=== PATIENT | male | born 1970 | race Caucasian/White ===

== ENCOUNTER 2018-07-22 20:07 | Emergency (ER) | payer BC ==
[2018-07-22] MEDS ORDERED: KETOROLAC 60 MG/2 ML VIAL IM STA (21:40)
[2018-07-22] MEDS ORDERED: CYCLOBENZAPRINE 5 MG TAB PO STA (21:40)
--- NOTE | 2018-07-22 21:50 | ED ---
General Adult HPI - General Chief complaint: Back Pain/Injury Stated complaint: Back pain Source: patient, RN notes reviewed, old records reviewed Mode of arrival: ambulatory Limitations: no limitations - History of Present Illness Initial comments: 47-year-old male patient past medical history of chronic back pain, lumbar laminectomy presents to ED with exacerbation of back pain. Patient states that he was playing basketball for approximately 2 weeks ago, denies sustaining any acute injury during basketball, approximately two days later patient began developing exacerbation of his lumbar back pain. Patient denies any significant falls or trauma. Patient states that he has right paralumbar pain that radiates down his posterior right leg. Patient states that this feels the same as prior back pain exacerbations in past. Patient denies any new symptoms he has not experienced previously. Patient denies IV drug use, fevers chills, loss of bowel or bladder control. Patient denies chest pain, shortness of breath, abdominal pain, nausea vomiting diarrhea. Patient states that his primary reason for ER presentation is symptom relief until he can follow up with his primary care physician. Systemic: Pt denies fatigue, myalgia, fever/chills, rash. Pt denies weakness, night sweats, weight loss. Neuro: Pt denies headache, visual disturbances, syncope or pre-syncope. HEENT: Pt denies ocular discharge or irritation, otalgia, rhinorrhea, pharyngitis or notable lymphadenopathy. Cardiopulmonary: Pt denies chest pain, SOB, heart palpitations, dyspnea on exertion. Abdominal/GI: Pt denies abdominal pain, n/v/d. : Pt denies dysuria, burning w/ urination, frequency/urgency. Denies new onset urinary or bowel incontinence. MSK: Pt denies loss of strength or function in extremities. Neuro: Pt denies new onset weakness, paresthesias. - Related Data Previous Rx's Medication Instructions Recorded Cyclobenzaprine [Flexeril] 10 mg PO TID #20 tab 07/22/18 Ketorolac [Toradol] 10 mg PO Q8HR 3 Days #12 tab 07/22/18 Allergies Allergy/AdvReac Type Severity Reaction Status Date / Time No Known Allergies Allergy Verified 07/22/18 20:24 Review of Systems ROS Statement: Those systems with pertinent positive or pertinent negative responses have been documented in the HPI. ROS Other: All systems not noted in ROS Statement are negative. Past Medical History Past Medical History: No Reported History History of Any Multi-Drug Resistant Organisms: None Reported Past Surgical History: Cholecystectomy Additional Past Surgical History / Comment(s): back surgery 2009. Past Psychological History: No Psychological Hx Reported Smoking Status: Current every day smoker Past Alcohol Use History: Occasional Past Drug Use History: None Reported General Exam - General Exam Comments Initial Comments: Constitutional: NAD, AOX3, Pt has pleasant affect. HEENT: NC/AT, trachea midline, neck supple, no lymphadenopathy. Posterior pharynx non erythematous, without exudates. External ears appear normal, without discharge. Mucous membranes moist. Eyes PERRLA, EOM intact. There is no scleral icterus. No pallor noted. Cardiopulmonary: RRR, no murmurs, rubs or gallops, no JVD noted. Lungs CTAB in anterior and posterior villa. No peripheral edema. Abdominal exam: Abdomen soft and non-distended. Abdomen non-tender to palpation in all 4 quadrants. Bowel sounds active in LLQ. No hepatosplenomegaly. No ecchymosis Neuro: CN II-XII grossly intact. No nuchal rigidity. MSK: No midline cervical, thoracic, lumbar tenderness. No para cervical, thoracic, lumbar tenderness. Right straight leg raise positive. The straight leg raise negative. Psoas and quadriceps strength 5 over 5 bilaterally. Patellar and Achilles reflex 2 out of 4 bilaterally. Heel to toe walking intact. Posterior tibialis and radial pulse +2 bilaterally. No posterior calf tenderness bilaterally, homans sign negative bilaterally. Sensation intact in upper and lower extremities. Full active ROM in upper and lower extremities, 5/ 5 stregnth. Limitations: no limitations Course Vital Signs 07/22/18 07/22/18 20:21 22:32 Temperature 98.1 F 98.2 F Pulse Rate 73 62 Respiratory 16 18 Rate Blood Pressure 148/95 130/93 O2 Sat by Pulse 98 98 Oximetry Medical Decision Making - Medical Decision Making 47-year-old male patient past medical history of chronic back pain, lumbar laminectomy presents to ED with exacerbation of back pain. Patient states that he was playing basketball approximately 2 weeks ago, denies sustaining any acute injury during basketball, approximately two days later patient began developing exacerbation of his lumbar back pain. Patient denies any significant falls or trauma. Patient states that he has right paralumbar pain that radiates down his posterior right leg. Patient states that this feels the same as prior back pain exacerbations in past. Patient denies any new symptoms he has not experienced previously. Patient states that his primary reason for ER presentation is symptom relief until he can follow up with his primary care physician. Physical exam displayed positive right straight leg raise. No other pathologic findings identified. No imaging or laboratory investigations were conducted. UA was initially ordered, however patient states that he had just urinated prior to ED presentation and was unable to provide sample. Patient's symptoms were controlled with Toradol and Flexeril. Patient to be discharged with Flexeril and Toradol for symptom relief. Patient to follow up with PCP in 1-2 days. Patient to return to ED if any new signs or symptoms develop. Case discussed with Dr. Arora. Disposition Clinical Impression: Chronic back pain Disposition: HOME SELF-CARE Condition: Good Instructions: Chronic Back Pain (ED) Additional Instructions: Patient to adhere to previously discussed treatment plan and will take medication(s) as directed. Patient to follow up with PCP in 1-2 days. Patient to return to ED if symptoms do not improve. Prescriptions: Cyclobenzaprine [Flexeril] 10 mg PO TID #20 tab Ketorolac [Toradol] 10 mg PO Q8HR 3 Days #12 tab Is patient prescribed a controlled substance at d/c from ED?: No Referrals: Zayda Holland DO [Primary Care Provider] - 1-2 days Time of Disposition: 22:20
[2018-07-22 22:33] VITALS: BP 130/93; PULSE 62; RESP 18; TEMP 98.2
== END 2018-07-22 22:33 | disposition home or self-care (01) ==
LOC: EC 20:07
DX: G89.29 Other chronic pain (principal); M54.5 Low back pain; M79.604 Pain in right leg; F17.200 Nicotine dependence, unspecified, uncomplicated; Z98.890 Other specified postprocedural states; Y93.67 Activity, basketball
CPT/HCPCS: 99283; 96372; J1885

== ENCOUNTER → 2018-09-05 | Outpatient (CLI) | payer BC ==
--- NOTE | 2018-09-05 16:43 | MR ---
EXAMINATION TYPE: MR lumbar spine wo/w con DATE OF EXAM: 09/05/2018 COMPARISON: None available at this location HISTORY: HX of Previous Surgery, Low Back Pain x 2-3 Months, Gadavist 9.5ml CONTRAST: 9.5 mL intravenous Gadavist. TECHNIQUE: Multiplanar, multisequence images of the lumbar spine were acquired. FINDINGS: L5-S1: There is a right paracentral asymmetric disc bulge into the right paracentral and lateral dire ction. Correlate for right S1 radicular symptoms. Laminectomy has been performed. Displacement of the right S1 nerve root is evident within the spinal canal. There may be a larger disc fragment extendin g beyond the S1 endplate best visualized sagittal plane series 301 image 9. No spinal canal stenosis. Right foraminal stenosis appears to be present. L4-L5: There is loss of disc height to this level. Endplate changes compatible with Modic type I dege nerative changes are present. Mild symmetrical disc bulge is present with mild anterior thecal sac co mpression. Facet hypertrophy with ligamentum flavum laxity has left posterior lateral thecal sac comp ression. Neural foramen are patent. L3-L4: Mild disc bulge is present. This extends into the far left and far right lateral direction. Mo derate right and mild left foraminal narrowing is present. L2-L3: No significant disc bulge or disc herniation. No spinal canal stenosis. No foraminal stenosi s. Neural foramen are patent.. L1-L2: No significant disc bulge or disc herniation. No spinal canal stenosis. No foraminal stenosi s. Neural foramen are patent.. T12-L1: No significant disc bulge or disc herniation. No spinal canal stenosis. No foraminal stenos is. Neural foramen are patent.. No abnormal enhancement. Some granulation tissue enhancement is evident through the right L5 laminect cynthia. IMPRESSION: 1. Right paracentral disc herniation displacing the right S1 nerve root posteriorly at the level of t he L5 laminectomy region.
== END | disposition home or self-care (01) ==
LOC: RADMRIMAIN 15:03
PROVIDERS: ATTEND Family Medicine
DX: M51.27 Other intervertebral disc displacement, lumbosacral region (principal); Z98.890 Other specified postprocedural states
CPT/HCPCS: 72158; A9585

== ENCOUNTER 2022-05-30 06:48 | Emergency (ER) | payer BC ==
[2022-05-30 06:56] VITALS: RESP 18; TEMP 98.4
[2022-05-30] MEDS ORDERED: PANTOPRAZOLE 40 MG/10 ML VIAL IVP STA (07:21)
[2022-05-30] MEDS ORDERED: MAG HYDROX/AL HYDROX/SIMETH 30 ML, HYOSCYAMINE ELIXIR 10 ML, LIDOCAINE VISCOUS 2% 10 ML PO STA ×3 (07:22)
[2022-05-30] MEDS ORDERED: ASPIRIN 81 MG PO STA (07:22)
[2022-05-30] MEDS: ONDANSETRON 4 MG/2 ML VIAL IVP STA ×2 (07:41→07:46)
[2022-05-30 07:49] LABS: Basophils % (A) 0 %; Eosinophils # (A) 0.2 k/uL (0-0.7); Eosinophils % (A) 2 %; HCT 42.1 % (39.0-53.0); HGB 14.7 gm/dL (13.0-17.5); Lymphocytes # (A) 1.3 k/uL (1.0-4.8); Lymphocytes % (A) 13 %; MCHC 34.8 g/dL (31.0-37.0); MCV 91.8 fL (80.0-100.0); Mean Platelet Volume 8.4; Monocytes # (A) 0.7 k/uL (0-1.0); Monocytes % (A) 7 %; Neutrophils # (A) 7.7 k/uL (1.3-7.7); Neutrophils % (A) 76 %; Platelet Count 258 k/uL (150-450); RBC 4.59 m/uL (4.30-5.90); RDW 13.1 % (11.5-15.5); WBC 10.1 k/uL (3.8-10.6)
[2022-05-30 07:56] LABS: INR 0.9 (<1.2); Partial Thromboplastin Time 27.8 sec (22.0-30.0)
--- NOTE | 2022-05-30 07:59 | XR ---
EXAMINATION TYPE: XR chest 2V DATE OF EXAM: 05/30/2022 COMPARISON: NONE HISTORY: Chest and abdominal pain. TECHNIQUE: Frontal and lateral views of the chest are obtained. FINDINGS: Mild lateral left basilar linear scarring and/or atelectasis. Right lung is clear. No pleu ral effusion or pneumothorax seen bilaterally. The cardiac silhouette size is within normal limits. The osseous structures are intact. Cholecystectomy clips are present. IMPRESSION: Mild lateral left basilar linear scarring and/or atelectasis.
[2022-05-30 08:01] LABS: ALT 36 U/L (4-49); AST 24 U/L (17-59); African American GFR (CKD) >90 (>60 ml/min/1.73 sqM); Alkaline Phosphatase 80 U/L (38-126); Amylase 47 U/L (30-110); Anion Gap 5 mmol/L; Blood Urea Nitrogen 9 mg/dL (9-20); Calcium 8.7 mg/dL (8.4-10.2); Carbon Dioxide 30 mmol/L (22-30); Chloride 103 mmol/L (98-107); Glucose 108 mg/dL (74-99); Lipase 84 U/L (23-300); Non-African American GFR(CKD) >90 (>60 ml/min/1.73 sqM); Potassium 4.2 mmol/L (3.5-5.1); Sodium 138 mmol/L (137-145); Total Bilirubin 0.7 mg/dL (0.2-1.3)
--- NOTE | 2022-05-30 08:34 | ED ---
General Adult HPI - General Chief complaint: Abdominal Pain Stated complaint: Abd Pain, Chest Pain Time Seen by Provider: 05/30/22 07:22 Source: patient, RN notes reviewed, old records reviewed Mode of arrival: ambulatory Limitations: no limitations - History of Present Illness Initial comments: Patient is a 51-year-old male who presents emergency Department complaining of substernal chest discomfort that radiates from his epigastrium towards the back of his throat. Describes it as a burning, discomfort sensation. Worse when lying down flat. Improved when sitting up. Attempted to take Pepto-Bismol at home with minimal improvement. Symptoms have been ongoing for multiple days. Presents emergency department for further evaluation at this time. Denies any cardiac history in himself. Has no other acute complaints at this time. Denies chest pain or shortness of breath. Denies headaches or lightheadedness. Denies any urinary complaints, fevers, chills. Denies any diarrhea. Presents for further evaluation at this time. - Related Data Previous Rx's Medication Instructions Recorded Cyclobenzaprine [Flexeril] 10 mg PO TID #20 tab 07/22/18 Ketorolac [Toradol] 10 mg PO Q8HR 3 Days #12 tab 07/22/18 Famotidine [Pepcid] 20 mg PO DAILY #14 tablet 05/30/22 Mag Hydrox/Al Hydrox/Simeth 30 ml PO BID PRN #400 ml 05/30/22 [Maalox] Ondansetron Odt [Zofran Odt] 4 mg PO Q8HR PRN 2 Days #6 tab 05/30/22 Allergies Allergy/AdvReac Type Severity Reaction Status Date / Time Penicillins Allergy Unknown Verified 05/30/22 06:56 Childhood Review of Systems ROS Statement: Those systems with pertinent positive or pertinent negative responses have been documented in the HPI. Review of Systems: CONST: Denies fever EYES: Denies blurry vision ENT: Denies nasal congestion C/V: Endorses burning substernal chest pain RESP: Denies shortness of breath GI: Endorses epigastric abdominal discomfort. : Denies dysuria SKIN: Denies rash. MSK: Denies joint pain. NEURO: Denies headache ROS Other: All systems not noted in ROS Statement are negative. Past Medical History Past Medical History: No Reported History History of Any Multi-Drug Resistant Organisms: None Reported Past Surgical History: Cholecystectomy Additional Past Surgical History / Comment(s): back surgery 2009. Past Psychological History: No Psychological Hx Reported Smoking Status: Current every day smoker Past Alcohol Use History: Occasional Past Drug Use History: None Reported General Exam - General Exam Comments Initial Comments: General: Appears in no acute distress. HEAD: Normal with no signs of head trauma. EYES: PERRLA, EOMI, conjunctiva normal, no discharge. ENT: Hearing grossly intact, normal oropharynx. RESPIRATORY: Clear breath sounds bilaterally. No wheezes, rales, or rhonchi. C/V: Regular rate and rhythm. S1 and S2 auscultated, no edema, peripheral pulses 2+ and intact throughout. Chest pain nonreproducible on palpation. ABD: Abdomen soft, nondistended. Minimally tender to palpation epigastric region. No guarding. No peritoneal signs. No rebound tenderness. EXT: Normal range of motion, no obvious deformity SKIN: No rashes or lesions observed on exposed skin. NEURO: Alert and oriented 4. Limitations: no limitations Course Vital Signs 05/30/22 06:54 Temperature 98.4 F Pulse Rate 96 Respiratory 18 Rate Blood Pressure 127/81 O2 Sat by Pulse 97 Oximetry Medical Decision Making - Medical Decision Making This on the patient's presentation and physical exam, I'm concerned for cardiac, etiology for his current symptoms. It is likely related to acid reflux considering his symptoms. I did discuss this. We will treat him with symptomatic medications as well as an aspirin. We will obtain cardiac labs. est x-ray and EKG. He will be connected to continuous cardiac monitoring. He was in agreement this plan. Vital signs are within acceptable limits. EKG shows no signs of acute ischemia. I interpreted the patient's chest x-ray showed no acute cardio pulmonary process. Laboratory studies are remarkable for a undetectable troponin. Remainder the workup is unremarkable. On reevaluation and the patient's sympotoms have resolved. I did discuss with the patient results of his workup. I do believe it is safer to be discharged home. He was in agreement this plan. I will provide the patient with a prescription for Maalox, famotidine, Zofran ODT. I instructed the patient to follow up with their PCP in the next 1-3 days. I explained that the patient should return to the emergency department if they experience any worsening symptoms. Strict return precautions were discussed with the patient. The patient expressed understanding of these instructions. I answered all questions that the patient had. The patient was discharged home in good condition with their prescriptions and follow up information. - Lab Data Result diagrams: 05/30/22 07:36 05/30/22 07:36 Lab Results 05/30/22 05/30/22 05/30/22 Range/Units 07:36 07:36 07:36 WBC 10.1 (3.8-10.6) k/uL RBC 4.59 (4.30-5.90) m/uL Hgb 14.7 (13.0-17.5) gm/dL Hct 42.1 (39.0-53.0) % MCV 91.8 (80.0-100.0) fL MCH 32.0 (25.0-35.0) pg MCHC 34.8 (31.0-37.0) g/dL RDW 13.1 (11.5-15.5) % Plt Count 258 (150-450) k/uL MPV 8.4 Neutrophils % 76 % Lymphocytes % 13 % Monocytes % 7 % Eosinophils % 2 % Basophils % 0 % Neutrophils # 7.7 (1.3-7.7) k/uL Lymphocytes # 1.3 (1.0-4.8) k/uL Monocytes # 0.7 (0-1.0) k/uL Eosinophils # 0.2 (0-0.7) k/uL Basophils # 0.0 (0-0.2) k/uL PT 10.0 (9.0-12.0) sec INR 0.9 (<1.2) APTT 27.8 (22.0-30.0) sec Sodium 138 (137-145) mmol/L Potassium 4.2 (3.5-5.1) mmol/L Chloride 103 (98-107) mmol/L Carbon Dioxide 30 (22-30) mmol/L Anion Gap 5 mmol/L BUN 9 (9-20) mg/dL Creatinine 0.79 (0.66-1.25) mg/dL Est GFR (CKD-EPI)AfAm >90 (>60 ml/min/1.73 sqM) Est GFR (CKD-EPI)NonAf >90 (>60 ml/min/1.73 sqM) Glucose 108 H (74-99) mg/dL Plasma Lactic Acid Zechariah (0.7-2.0) mmol/L Calcium 8.7 (8.4-10.2) mg/dL Total Bilirubin 0.7 (0.2-1.3) mg/dL AST 24 (17-59) U/L ALT 36 (4-49) U/L Alkaline Phosphatase 80 (38-126) U/L Troponin I (0.000-0.034) ng/mL Total Protein 6.0 L (6.3-8.2) g/dL Albumin 4.0 (3.5-5.0) g/dL Amylase 47 (30-110) U/L Lipase 84 (23-300) U/L 05/30/22 05/30/22 Range/Units 07:36 07:36 WBC (3.8-10.6) k/uL RBC (4.30-5.90) m/uL Hgb (13.0-17.5) gm/dL Hct (39.0-53.0) % MCV (80.0-100.0) fL MCH (25.0-35.0) pg MCHC (31.0-37.0) g/dL RDW (11.5-15.5) % Plt Count (150-450) k/uL MPV Neutrophils % % Lymphocytes % % Monocytes % % Eosinophils % % Basophils % % Neutrophils # (1.3-7.7) k/uL Lymphocytes # (1.0-4.8) k/uL Monocytes # (0-1.0) k/uL Eosinophils # (0-0.7) k/uL Basophils # (0-0.2) k/uL PT (9.0-12.0) sec INR (<1.2) APTT (22.0-30.0) sec Sodium (137-145) mmol/L Potassium (3.5-5.1) mmol/L Chloride (98-107) mmol/L Carbon Dioxide (22-30) mmol/L Anion Gap mmol/L BUN (9-20) mg/dL Creatinine (0.66-1.25) mg/dL Est GFR (CKD-EPI)AfAm (>60 ml/min/1.73 sqM) Est GFR (CKD-EPI)NonAf (>60 ml/min/1.73 sqM) Glucose (74-99) mg/dL Plasma Lactic Acid Zechariah 0.8 (0.7-2.0) mmol/L Calcium (8.4-10.2) mg/dL Total Bilirubin (0.2-1.3) mg/dL AST (17-59) U/L ALT (4-49) U/L Alkaline Phosphatase (38-126) U/L Troponin I <0.012 (0.000-0.034) ng/mL Total Protein (6.3-8.2) g/dL Albumin (3.5-5.0) g/dL Amylase (30-110) U/L Lipase (23-300) U/L - EKG Data -: EKG Interpreted by Me EKG Comments: 12-lead Electrocardiogram Interpretation Note EKG was reviewed and interpreted by myself. 12-lead ECG performed at 0727 is interpreted by me as revealing normal sinus rhythm at a rate of 84 beats per m inute. [place] is normal. [place] interval is 165 ms, QRS duration is 92 ms, QTc is 389 ms.. Patient does have findings consistent with benign early repolarization. There were no ST or T wave abnormalities to suggest myocardial ischemia or injury. R wave progression across the precordium was satisfactory. By my interpretation this EKG is non-diagnostic for acute ischemia. Disposition Clinical Impression: GERD (gastroesophageal reflux disease) Disposition: HOME SELF-CARE Condition: Good Prescriptions: Mag Hydrox/Al Hydrox/Simeth [Maalox] 30 ml PO BID PRN #400 ml PRN Reason: Dyspepsia Famotidine [Pepcid] 20 mg PO DAILY #14 tablet Ondansetron Odt [Zofran Odt] 4 mg PO Q8HR PRN 2 Days #6 tab PRN Reason: Nausea Is patient prescribed a controlled substance at d/c from ED?: No Referrals: Zayda Holland DO [Primary Care Provider] - 1-2 days Time of Disposition: 08:30
[2022-05-30 08:57] VITALS: BP 126/78; PULSE 80
== END 2022-05-30 09:17 | disposition home or self-care (01) ==
LOC: EC 06:48
DX: K21.9 Gastro-esophageal reflux disease without esophagitis (principal); F17.200 Nicotine dependence, unspecified, uncomplicated; Z88.0 Allergy status to penicillin
CPT/HCPCS: 36415; 93005; 80053; 82150; 83605; 83690; 84484; 85025; 85610; 85730; 71046; 99285; 96374; C9113